=== PATIENT | female | born 1970 | race Caucasian/White ===

== ENCOUNTER 2024-01-26 05:32 | Observation (INO) ==
--- NOTE | 2024-01-24 08:39 | Anesthesiology Consultation ---
Date of Service January 24, 2024 Assessment & Plan (1) Encounter for pre-operative examination: Chart Review Chart Review: Acceptable Risk for Surgery (pending review of old cardio note ) and Patient NOT seen in Pre Admission Testing - Discussed stress test with Dr. Israel. Please try obtain last cardio visit ( [place]) (was 2-3 years ago per patient) -Infectious Disease screening: Per PAT nursing assessment on 01/10/24. No known infectious disease contacts in past 10 days or current infectious disease symptoms. No recent travel outside the country. History Surgery Operation Date: 01/26/24 07:15 Proposed Procedures p Bilateral Mastectomy with Right [place] Lymph Node Biopsy - Payam Gotti, Height/Weight Height: 5 ft 5.25 in Weight: 131.088 kg Allergies Allergy/AdvReac Type Severity Reaction Status Date / Time adhesive Allergy blistering Verified 01/14/24 10:44 aspirin Allergy blisters Verified 01/14/24 10:44 mouth/throat atorvastatin [From Lipitor] Allergy Unknown Verified 01/14/24 10:44 barium sulfate Allergy Hives Verified 01/14/24 10:44 codeine Allergy Hives Verified 01/14/24 10:44 diclofenac Allergy blisters Verified 01/14/24 10:44 mouth/throat egg Allergy "projectile Verified 01/14/24 10:44 vomiting" formoterol [From Dulera] Allergy Unknown Verified 01/14/24 10:44 gabapentin Allergy vertigo, Verified 01/14/24 10:44 nausea hydrocodone Allergy Hives Verified 01/14/24 10:44 latex Allergy blistering Verified 01/14/24 10:44 mometasone furoate Allergy Unknown Verified 01/14/24 10:44 [From Dulera] naproxen [From Aleve] Allergy blisters Verified 01/14/24 10:44 mouth/throat oxycodone [From Percocet] Allergy Hives Verified 01/14/24 10:44 povidone-iodine Allergy blisters Verified 01/14/24 10:44 shellfish derived Allergy hives, Verified 01/10/24 08:36 swelling sulfamethoxazole Allergy Hives Verified 01/14/24 10:44 [From Bactrim] trimethoprim [From Bactrim] Allergy Hives Verified 01/14/24 10:44 procaine [From Novocain] AdvReac "doesn't Verified 01/14/24 10:44 work for me" mri dye Allergy Mild Cough, Uncoded 01/14/24 10:44 throat itching allergy medication Allergy syncope Uncoded 01/14/24 10:44 bee stings Allergy Anaphylaxis Uncoded 01/14/24 10:44 Additional Notes: Adverse reaction to procaine- ineffective per patient Medications Home Medications Medication Instructions Recorded Confirmed Last Taken albuterol sulfate 2.5 mg/3 mL 2.5 mg inhalation Q4H PRN sob 09/28/23 01/14/24 Unknown (0.083 %) solution for nebulization cetirizine 10 mg tablet (Zyrtec) 10 mg PO QPM 09/28/23 01/14/24 Unknown ciclopirox 0.77 % topical cream 1 applic topical BID 09/28/23 01/14/24 Unknown (Loprox (as olamine)) clobetasol 0.05 % topical ointment 1 applic topical DAILY 09/28/23 01/14/24 Unknown (Temovate) diclofenac sodium 1 % topical gel 2 g topical QID 09/28/23 01/14/24 Unknown lactobacillus combination no.9 4 4,000 mmu cells PO DAILY PRN Gi 09/28/23 01/14/24 Unknown billion cell capsule (Adult 50 Upset Plus Probiotic) magnesium oxide 500 mg capsule 400 mg PO QPM 09/28/23 01/14/24 Unknown meclizine 25 mg tablet 25 mg PO DAILY PRN Vertigo 09/28/23 01/14/24 Unknown montelukast 10 mg tablet 10 mg PO QPM 09/28/23 01/14/24 Unknown (Singulair) rimegepant 75 mg disintegrating 75 mg PO Q OTHER DAY PRN Migraine 09/28/23 01/14/24 Unknown tablet (Nurtec ODT) Headache rivaroxaban 20 mg tablet (Xarelto) 20 mg PO QAM 09/28/23 01/14/24 Unknown sennosides 8.6 mg tablet (Senokot) 8.6 mg PO DAILY PRN Constipation 09/28/23 01/14/24 Unknown simvastatin 20 mg tablet (Zocor) 40 mg PO QPM 09/28/23 01/14/24 Unknown tramadol 50 mg tablet 50 mg PO Q6H PRN Pain 09/28/23 01/14/24 Unknown metoprolol tartrate 50 mg tablet 25 mg PO BID 10/12/23 01/14/24 Unknown (Lopressor) clonazepam 0.5 mg tablet 0.5 mg PO Q8H PRN Anxiety 01/05/24 01/14/24 Unknown cyclobenzaprine 1 dose PO UD PRN Muscle Spasm 01/05/24 01/14/24 Unknown dexlansoprazole 30 mg 30 mg PO QAM 01/05/24 01/14/24 Unknown capsule,biphase delayed release (Dexilant) ergocalciferol (vitamin D2) 1,250 1,250 mcg PO WK 01/05/24 01/14/24 Unknown mcg (50,000 unit) capsule (Vitamin D2) fluticasone fur. 200 mcg-umeclid 1 inh inhalation QAM 01/05/24 01/14/24 Unknown 62.5 mcg-vilant 25 mcg inhalat.powder (Trelegy Ellipta) levothyroxine 25 mcg tablet 25 mcg PO QAM 01/05/24 01/14/24 Unknown ondansetron 8 mg disintegrating 8 mg PO Q6H PRN Nausea 01/05/24 01/14/24 Unknown tablet rimegepant 75 mg disintegrating 75 mg PO UD PRN Migraine Headache 01/05/24 01/14/24 Unknown tablet (Nurtec ODT) simethicone 125 mg tablet 125 mg PO QID 01/05/24 01/14/24 Unknown varenicline 1 mg tablet 1 mg PO BID 01/05/24 01/14/24 Unknown Past Medical History Medical History Anxiety due to invasive procedure Asthma rare use of PRN inh Breast cancer dx'd 05/2023. Rt breast. Fibromyalgia GERD (gastroesophageal reflux disease) Hiatal hernia History of degenerative disc disease History of DVT (deep vein thrombosis) 2019 RLE - unk etiology - treated with AC also hx DVT at age 17 with on chronic Xarelto History of migraine History of nephrolithiasis History of ovarian cyst HLD (hyperlipidemia) HTN (hypertension) Hypothyroidism IBS (irritable bowel syndrome) PONV (postoperative nausea and vomiting) Sleep apnea CPAP Tachycardia Past Family History Family History Other Adopted Past Surgical History Surgical History H/O bilateral oophorectomy H/O lumpectomy right breast surgeries- multiple (benign) H/O tubal ligation H/O: hysterectomy History of ankle surgery left History of bowel resection r/t benign mass History of breast biopsy History of carpal tunnel surgery bilat History of colon surgery History of cone biopsy of cervix History of esophagogastroduodenoscopy (EGD) History of surgery LLE as a teen following injury History of tonsillectomy and adenoidectomy Hx of appendectomy Hx of colonoscopy 2022 Previous section S/P cholecystectomy Social History Smoking Status: Former smoker Do You Dip or Chew Tobacco: No Smoking End Date: ~3 weeks ago, currently on chantix Hx Alcohol Use: No Hx Substance Use: No substance use type: does not use Testing Laboratory Results 01/19/24= WBC: 13.3 (will leave to surgeon's discretion) H/H: 13.4/41.9 PLATELETS: 345 SODIUM: 136 POTASSIUM: 44.7 CHLORIDE: 107 CO2: 25.0 BUN: 13.0 CREATININE: 0.70 GLUCOSE: 97 HGB A1C: 5.7 PT: 12.3 INR: 1.2 Electrocardiogram Date: 09/30/23 Findings: + NSR @ (64bpm) Normal EKG per cardio Chest X-Ray Date: 09/23/23 Findings: + NAD Echocardiogram Date: 01/26/20 EF: 60% LV Function: normal Top normal LV wall thickness Left atrium mildly dilated Mild MRdirected centrally. Mitral valve mildly thickened PASP 26 mmHg (normal) Stress Test Date: 01/26/20 Type: nuclear Mild breast attenuation and diaphragmatic attenuation Good quality study Normal gated MPI, wall motion and EF There is a medium sized, mild intensity rest MPI defect of the inferior myocardium. The significantly improves with stress. This is consistent with artifact. A small inferior infarct cannot be excluded. There is no evidence of ischemia. Study is low risk for ischemia and mildly abnormal. Lexiscan stress EKG was negative for myocardial ischemia Other Testing Holter monitor 01/26/2020= rare PACs. No pairs or triplets. 1 run of 12 beats PAT. Rare PVCs. No pairs, triplets, grouped beating or NSVT. Sinus tachycardia. No bradycardia, pauses >2 seconds or high-grade AV block.
--- NOTE | 2024-01-25 16:32 | History & Physical Bridge Note ---
Date of Service January 25, 2024 History & Physical Bridge Note I have examined the patient, reviewed the History & Physical and in the interval since the performance of the History & Physical I have noted the following changes of clinical significance: patient on antibiotics prescribed by her dentist for tooth abscess and increased her antibiotics last week. This is significantly improved/resolved. Patient planned for b/l skin sparing mastectomy with right axillary SNB.
[2024-01-26] MEDS: LACTATED RINGER'S 1,000 ML IV SCH ×2 (06:13→18:05)
[2024-01-26] MEDS: LR 15ML/HR IV SCH (06:13)
[2024-01-26] MEDS ORDERED: NALOXONE HCL 0.4 MG/1 ML VIAL/CARP IV PRN (06:40)
[2024-01-26] MEDS ORDERED: ATROPINE SULFATE 0.1 MG/ML 10ML SYR IV PRN (06:40)
[2024-01-26] MEDS ORDERED: FLUMAZENIL 0.1 MG/1 ML 10 ML VIAL IV PRN (06:40)
[2024-01-26] MEDS ORDERED: ONDANSETRON INJ 2 MG/ML 2 ML VIAL IV PRN ×2 (06:40→14:10)
[2024-01-26] MEDS ORDERED: PROMETHAZINE HCL 6.25 MG in SODIUM CHLORIDE 0.9% 50 ML IV PRN (06:40)
[2024-01-26] MEDS ORDERED: PROPOFOL IV EMULSION 10 MG/ML 20 ML VIAL IV ONE (06:50)
[2024-01-26] MEDS ORDERED: MIDAZOLAM HCL 1 MG/ML 2ML VIAL ONE (06:52)
[2024-01-26] MEDS ORDERED: fentaNYL citrate PF 100 MCG/2 ML VIAL ONE ×5 (06:53→11:41)
[2024-01-26] MEDS ORDERED: CISATRACURIUM BESYLATE IV SOLN 2 MG/ML 10 ML VIAL IV ONE ×2 (06:54→13:15)
--- NOTE | 2024-01-26 07:07 | History & Physical Bridge Note ---
Date of Service January 26, 2024 History & Physical Bridge Note I have examined the patient, reviewed the History & Physical and in the interval since the performance of the History & Physical I have noted the following changes of clinical significance: no changes noted
[2024-01-26] MEDS: ceFAZolin 3000MG 3,000 MG/72.5 ML BAG IV SCH (07:19)
[2024-01-26] MEDS: METHYLENE BLUE 0.5% 10 ML VIAL ONE (07:55)
[2024-01-26] MEDS ORDERED: SUCCINYLCHOLINE 100MG/5ML SYR IV ONE (08:22)
[2024-01-26] MEDS ORDERED: ONDANSETRON INJ 2 MG/ML 2 ML VIAL ONE (08:25)
[2024-01-26] MEDS: ceFAZolin 3000MG 3,000 MG/72.5 ML BAG IV ONE (11:19)
[2024-01-26] MEDS ORDERED: ceFAZolin 330 MG/ML 1 GM VIAL ONE (11:19)
[2024-01-26] MEDS: BUPIVACAINE/EPINEPHRINE 0.5% MPF 1:200,000 30 ML VIAL ONE ×2 (11:30→13:04)
[2024-01-26] MEDS ORDERED: NEOSTIGMINE METHYLSULFATE 1 MG/ML 10ML VIAL ONE (13:14)
[2024-01-26] MEDS ORDERED: GLYCOPYRROLATE 0.2 MG/ML VIAL ONE (13:14)
[2024-01-26] MEDS ORDERED: LABETALOL HCL IV 5 MG/ML 20ML IV ONE (13:33)
[2024-01-26] MEDS ORDERED: traMADol HCL 50 MG TABLET PO PRN (14:10)
[2024-01-26] MEDS ORDERED: MoRPHine SULFATE 2 MG/ML CARP IV PRN (14:10)
[2024-01-26] MEDS: fentaNYL citrate PF 100 MCG/2 ML VIAL IV PRN (14:32)
--- NOTE | 2024-01-26 14:57 | Anesthesiology Progress Note ---
Date of Service January 26, 2024 Anesthesia Post Procedure Vital Signs Vital Signs: Temp Pulse Pulse Resp BP Pulse Ox O2 Del Method 01/26/24 14:13 66 15 98 Oxymask 01/26/24 05:58 36.5 C 68 20 169/88 H 95 Room Air O2 Flow Rate 01/26/24 14:13 5 01/26/24 05:58 Transfer of Care Handoff Completed per policy Notes Mental Status: alert / awake / arousable Patient Amnestic to Procedure: Yes Nausea / Vomiting: adequately controlled Pain: adequately controlled Airway Patency, RR, SpO2: stable & adequate BP & HR: stable & adequate Hydration State: stable & adequate Anesthetic Complications: no major complications apparent
--- NOTE | 2024-01-26 16:33 | Operative Report ---
PG Post Operative Report Pre & Post Diagnosis Operation Date: 01/26/24 07:15 Pre-Op Diagnosis: Invasive Lobular Carcinoma of Breast in Female Post-Op Diagnosis: Invasive Lobular Carcinoma of Breast in Female I identified the patient and participated in the time-out.: Yes Procedure Operation Date: 01/26/24 07:15 Actual Procedures p Bilateral Mastectomy with Right [place] Lymph Node Biopsy(Bilateral) - Payam Najera DO Surgeon Payam Najera DO Human Resources Records Clerk AMINTA Lua Estimated Blood Loss 50 Findings Consistent with Post-Op Diagnosis Specimens Right axillary sentinel lymph node #1: In vivo 300, ex vivo 296. Hot, not blue Right axillary sentinel lymph node #2: In vivo 213, ex vivo 229. Hot, not blue Right axillary sentinel lymph node #3: In vivo 199, ex vivo 169. Hot, not blue Right breast: Long stitch lateral, short stitch superior, double stitch posterior aspect of mass Additional right adipose tissue at the posterolateral margin: Short stitch is at the new posterior margin, long stitch is the new lateral margin Left breast: Short stitch superior, long stitch lateral Additional left lateral mastectomy site tissue Additional left inferior mastectomy site tissue Drains 10 Fr AL drain B/L Anesthesia Type General Complications None Description of Procedure The patient was brought back to the operating room and placed on the operating room table in supine position. She was connected to cardiac and oxygen monitoring. Supplemental O2 was administered and SCDs were applied to bilateral lower extremities. General anesthesia was administered and a Christiansen catheter was inserted. The anterior chest wall and bilateral axilla were prepped and draped in typical sterile fashion. The gamma probe was used to identify the location of greatest technetium uptake at the right axilla and a line was made with a sterile marking pen for planned incision. Local anesthetic was used anesthetize the skin and subcutaneous tissues and an incision was made with a 15 blade. The subcutaneous tissue was dissected to the clavipectoral fascia of the axilla which was incised. This dissection was performed using cautery. The neoprobe was used to locate 3 sentinel lymph nodes that were not blue with gamma signals as indicated above. These lymph nodes were imaged and intraoperatively and none contained the biopsy marker indicating a previously benign right axillary lymph node biopsy. These lymph nodes were sent fresh to pathology for further analysis. The right axilla was copiously irrigated and dried. There was bleeding at this location during the dissection. Bleeding was controlled using cautery. After hemostasis was achieved, local anesthetic was injected into the surrounding tissues and the area was closed using 3-0 Vicryl suture followed by 4-0 Vicryl suture at the level of the skin. Attention was then turned to the right breast where a small elliptical incision was made using a 15 around the nipple for a breast skin sparing mastectomy as the patient has plans for implant reconstruction at a later date. Healthy skin flaps were elevated in all directions to the clavicle superiorly, lateral border of the sternum medially, inframammary fold inferiorly and the serratus muscle laterally. Bleeding during dissection was controlled using cautery the breast and muscle fascia were removed and imaged intraoperatively confirming the mass was within the specimen as well as the biopsy marker. This mass was located at the lateral aspect of the breast and therefore is close to the lateral edge of the specimen. Additional surrounding subcutaneous tissue was further excised in the posterior lateral aspects of the right mastectomy site this was marked with sutures as indicated above. Both specimens were sent in separate labeled containers of pathology for further analysis. Additional local anesthetic was injected at the muscular bed, the right mastectomy site was checked for hemostasis which was achieved using cautery. The area was copiously irrigated and dried. A 10 Guyanese AL drain was inserted at the mastectomy bed. Subcutaneous tissue was approximated using 3-0 Vicryl suture. The skin was closed using 4-0 Vicryl suture. After changing my gloves, gown and instruments were changed the left breast was addressed a similar skin incision was made at the left breast around the nipple. Dissection was carried out in the same fashion elevating healthy skin flaps in all directions to the usual borders of mastectomy. The dissection was carried posteriorly to the muscle and the left breast was elevated away from the underlying muscles the specimen was labeled as indicated in the specimen section above and placed on labeled container for pathology. Additional lateral and inferior adipose tissue was removed to send down the skin flap at these locations as they were extremely thick. This was also sent to pathology labeled as indicated above. Additional local anesthetic was injected at the muscle bed, the area was checked thoroughly for hemostasis which was achieved using cautery. The area was copiously irrigated and dried. A 10 Guyanese AL drain was inserted at this site. The use of the left mastectomy site was approximated the deep dermis using 3-0 Vicryl suture and 4-0 Vicryl suture at the skin. The area was wiped clean with a saline soaked lap pad and dried. The incisions were dressed with Steri-Strips. A mastectomy bra was applied. The patient tolerated the procedure well. She was awakened from anesthesia, the Christiansen catheter was removed and she was transferred to recovery in stable condition The clinical lab assistant's role in this case was aiding in exposure throughout all dissection as well as getting closure of the wounds. I attest to the content of the Intraoperative Record and any orders documented therein. Any exceptions are noted below.
[2024-01-26] MEDS: SCOPOLAMINE 1 MG/72 HR TDSY PATCH TD SCH (16:36)
[2024-01-26] MEDS: CHECK SCOPOLAMINE PATCH PLACEMENT SCH (16:37)
[2024-01-26] MEDS: SODIUM CHLORIDE 0.9% 1,000 ML IV SCH (16:37)
[2024-01-26] MEDS: DROPERIDOL 5 MG/2 ML VIAL IV STA (17:00)
[2024-01-26] MEDS ORDERED: ALBUTEROL 0.083% NEBU SOLN 3 ML VIAL INH PRN (17:20)
[2024-01-26] MEDS ORDERED: clonazePAM 0.5 MG TAB PO PRN (17:20)
[2024-01-26] MEDS ORDERED: CYCLOBENZAPRINE PO PRN (17:20)
[2024-01-26] MEDS ORDERED: MECLIZINE HCL 25 MG TAB PO PRN (17:20)
[2024-01-26] MEDS ORDERED: PROMETHAZINE HCL 12.5 MG in SODIUM CHLORIDE 0.9% 50 ML IV PRN (17:20)
[2024-01-26] MEDS: ACETAMINOPHEN 1,000 MG/100 ML VIAL IV SCH (18:05)
[2024-01-26] MEDS: SIMVASTATIN 40 MG TAB PO SCH (20:28)
[2024-01-26] MEDS: MONTELUKAST SODIUM 10 MG TABLET PO SCH (20:28)
[2024-01-26] MEDS: CETIRIZINE HCL 10 MG TABLET PO SCH (20:28)
[2024-01-26] MEDS: METOPROLOL TARTRATE 25 MG TAB PO SCH (20:28)
[2024-01-26] MEDS: MoRPHine SULFATE 4 MG/ML 1 ML CARP\\VIAL IV PRN (22:01)
[2024-01-26] MEDS: traMADol HCL 50 MG TABLET PO PRN (23:51)
[2024-01-27] MEDS: LEVOTHYROXINE SODIUM 25 MCG TABLET PO SCH (05:39)
[2024-01-27] MEDS: UMECLIDINIUM/VILANTEROL 62.5/25MCG 7 PUFFS/INHALER INH SCH (07:57)
[2024-01-27] MEDS: FLUTICASONE FUROATE 200MCG 14 PUFFS/INHALER INH SCH (07:57)
[2024-01-27] MEDS: PANTOprazole 40 MG TAB PO SCH (07:57)
--- NOTE | 2024-01-27 15:17 | Mammography Report ---
SPECIMEN RIGHT BREAST: 01/26/2024 CLINICAL HISTORY: 53-year-old woman with recently diagnosed right breast lobular carcinoma presents a t time of bilateral mastectomy. Specimen radiography performed to ensure inclusion of the lesion and associated biopsy clip within the right mastectomy specimen. COMPARISON: Comparison is made to exams dated: 01/24/2024 mammogram, 01/24/2024 ultrasound, 10/20/2023 mammogram, 10/20/2023 ultrasound biopsy, 10/20/2023 ultrasound - [facility], and 08/19 ultrasound biopsy. FINDINGS: Specimen radiography was performed of the right breast mastectomy specimen. The specimen d emonstrates a coiled metallic biopsy clip in the center of the specimen tray at e-7 on the grid. Th e smaller square shaped metallic biopsy marker denoting the site of biopsy-proven carcinoma is seen a t 1/2 below L on the grid and there is associated density and microcalcifications which extend to the edge of the tissue specimen. This was reported to the operating surgeon during surgery and she repo rts she was obtaining more lateral and posterior tissue at this location. IMPRESSION: SPECIMEN Right breast mastectomy tissue specimen radiograph, as above. Monse Antony M.D. ay/:01/26/2024 15:42:22 Director Of Social Services: OR Technologist, [facility]
== END 2024-01-27 14:12 | disposition home or self-care (01) ==
LOC: 3W 05:32 → ASU 05:32